=== PATIENT | male | born 1955 | race Caucasian/White ===

== ENCOUNTER 2016-05-14 08:58 | Day surgery (SDC) | payer OTHER ==
[~2016-05-14] VITALS: Ht 175.3 cm; Wt 94.8 kg
[2016-05-27] MEDS ORDERED: ZYLOPRIM-DPS300 MG PO (10:39)
[2016-05-27] MEDS ORDERED: AMLODIPINE-VAL1 EAC2 PO (10:39)
[2016-05-27] MEDS ORDERED: BRILINTA90 MG PO (10:40)
[2016-05-27] MEDS ORDERED: ATORVASTATIN CA80 MG PO (10:40)
[2016-05-27] MEDS ORDERED: METOPROLOL SUCC25 MG PO (10:40)
[2016-05-27] MEDS ORDERED: ASPIRIN EC81 MG PO (10:40)
[2016-05-27] MEDS ORDERED: LEVOTHYROXINE75 MCG PO (10:40)
[2016-05-27] MEDS ORDERED: FOLVITE-DPS1 MG PO (10:41)
[2016-05-27] MEDS ORDERED: PROTONIX40 M2 PO (10:41)
[2016-05-27] MEDS ORDERED: MIRALAX PACKET17 GM PO (10:41)
[2016-05-27] MEDS ORDERED: AMBIEN DPS5 MG PO (10:41)
[2016-05-27] MEDS ORDERED: GRANIX480 MCG/0. SQ (10:42)
[2016-05-27] MEDS ORDERED: [UNRECOGNIZED DRUG - OTHER] PO (10:42)
[2016-05-27] MEDS ORDERED: HYTONE-DPS 2.5%30 GM TP (10:42)
[2016-05-27] MEDS ORDERED: AMOXICILLIN875 MG PO (10:43)
[2016-06-09] MEDS ORDERED: MUCINEX D ER T1 EACH PO (16:30)
[2016-06-09] MEDS ORDERED: HYDROCHLOROTHIA25 MG PO (16:31)
[2016-06-09] MEDS ORDERED: LASIX20 M1 PO (16:31)
[2016-06-09] MEDS ORDERED: ACETAMINOP160 MG/51 PO (16:32)
[2016-06-09] MEDS ORDERED: MELATONIN2.5 MG PO (16:32)
[2016-06-09] MEDS ORDERED: LORATADINE5 MG/5 M3 PO (16:32)
[2016-06-09] MEDS ORDERED: DIPHENHYDR12.5 MG/2 PO (16:33)
--- NOTE | 2016-06-19 12:05 | OR ---
ADMIT: 05/14/2016 RM/LOC: [facility] MR#: [id number] [address] [address] EFFIE GONZALEZ Zev [facility] N [address] [place] [id number] Operative/Delivery Room Report SEX: M AGE: 60 : 1955 SURGERY DATE: 05/14/2016 SURGEON: Papi Uriostegui MD PREOPERATIVE DIAGNOSIS: Metastatic carcinoma with esophageal mass post and subcutaneous nodules one at the sternum, need for IV access for chemotherapy and feeding tube. PROCEDURES: 1. Placement of the left subclavian PowerPort. Catheter length 22 cm, placement in the superior vena cava. 2. Excision of a 1.5 cm nodule subcutaneous right at the lower aspect of the sternum. 3. EGD (esophagogastroduodenoscopy) and PEG (percutaneous endoscopic gastrostomy) tube placement. ANESTHESIA: Local MAC anesthesia for all. ESTIMATED BLOOD LOSS: Less than 25 mL blood loss for all. INDICATION FOR PROCEDURE: Please see my H and P. DESCRIPTION OF PROCEDURE: After the risks, benefits, possible complications, and the alternatives had been explained, and informed consent had been obtained, the patient was taken back to the operating room, underwent sedation. Surgical field was prepped and draped in a sterile manner. The left infraclavicular area was anesthetized with lidocaine. Cook needle was introduced in the left subclavian vein. Guidewire was passed. Intraoperative fluoroscopy showed it to be in good position. Dissected out a pocket large enough for the PowerPort. Catheter was cut at 22 cm, placed in the port and flushed with saline. Dilator and sheath were placed over top of the guidewire. The guidewire and dilator removed. Catheter was threaded down the sheath and the sheath stripped away. There was good aspiration and flushing of the port. Intraoperative fluoroscopy showed it to be in good position. It was sewn in the subcutaneous pocket with a silk suture, 3-0 and 4-0 were used to close subcutaneous tissue and the skin. Once that was done and covered and bandaged, there was a palpable nodule and several of these in the subcutaneous area that show up on CT scan that look worrisome for some metastatic-type disease. Once quite readily accessible on the sternum, I used some 1% lidocaine to anesthetize the skin, made an incision over top of this. Dissected down and circumferentially removed a 1.5 cm nodule. Maintained hemostasis. I then closed with 3-0 Vicryl and 4-0 Monocryl. Once that was done, and that was bandaged as well, we began the EGD and PEG tube. The flexible EGD scope was introduced and it was tight to get to the esophagus, but without needing to dilate, I was able to get my EGD scope through here by here down into the stomach. I had an area where it indented on ADMIT: 05/14/2016 RM/LOC: [facility] MR#: [id number] [address] [place] [id number] CHOUGONZALEZ [facility] N [address] [place] [address] Operative/Delivery Room Report SEX: M AGE: 60 : 1955 the stomach nicely and I could get transillumination, that area was sterilely prepped, local anesthetic was applied. Then, I made a small incision with the needle and catheter was placed into the stomach. The guidewire wire was placed, it was grasped with a snare, brought out through the mouth. The PEG tube was then threaded over top of the guidewire out through the anterior abdominal wall up into position and it appeared to go nicely without any difficulty. Once that was done, I cut the tube, placed the fastener and the cap on it and then reintroduced the EGD scope, maneuvered down the esophagus again into the stomach, you can see the flange of the PEG tube in good position in picture 3 and 4. The scope was removed and the procedure terminated. Tolerated it well, was taken to the recovery room in stable and satisfactory condition. Papi Uriostegui MD/ nupur JOB #: [id number] CC: Papi Uriostegui, Attending Physician Krissy Meléndez, Family Physician
== END 2016-05-14 15:45 | disposition home or self-care (01) ==
LOC: SSS 08:58 → RAD.S 11:00 → EDSTATUS 11:00 → SSS 15:45
DX: C48.1 Malignant neoplasm of specified parts of peritoneum (principal); E78.00 Pure hypercholesterolemia, unspecified; I10 Essential (primary) hypertension; E03.9 Hypothyroidism, unspecified; I51.89 Other ill-defined heart diseases; K21.9 Gastro-esophageal reflux disease without esophagitis; Z86.010 Personal history of colon polyps; Z79.899 Other long term (current) drug therapy

== ENCOUNTER 2016-05-20 12:23 | Inpatient (IN) | payer OTHER ==
[~2016-05-20] VITALS: Ht 175.3 cm; Wt 101.0 kg
--- NOTE | 2016-05-25 16:23 | CO ---
ADMIT: 05/20/2016 RM/LOC: 517 [facility] MR#: [id number] [address] [address] EFFIEGONZALEZ Zev [address] [place] [address] Consultation SEX: M AGE: 60 : 1955 DATE OF CONSULTATION: 05/20/2016 ATTENDING PHYSICIAN: Rober Meyer CONSULTING PHYSICIAN: Rober Johnson MD REASON FOR CONSULTATION: Esophageal cancer. HISTORY OF PRESENT ILLNESS: Patient is a 60-year-old male, who I recently met in clinic for his newly diagnosed esophageal cancer. This led to a further staging studies which unfortunately showed some evidence of subcutaneous metastases as well as omental and abdominal lymph node metastases. He underwent confirmation of these mets with biopsies as well as a feeding tube placement and port placement last week. Over this past weekend, he was admitted to [place] for a probable pneumonia. He has deteriorated over the last few days with fairly severe abdominal distention, shortness of breath, and hypoxia. He was therefore transferred to our facility for further care. He is very uncomfortable at the time of my visit. He cannot take deep breaths. He has really not been ambulating without assistance. He is constipated. He has had ongoing nausea. His fevers have now at this point, resolved. PAST MEDICAL HISTORY: He does have a history of coronary artery disease with stent placement in 2013 and is on medication for that. He has hypertension. He otherwise has no chronic medical illnesses. ALLERGIES: NO KNOWN DRUG ALLERGIES. MEDICATIONS: Reviewed in the chart. 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 They live up near [place]. He is . He is a lifelong nonsmoker. He drinks alcohol socially. FAMILY HISTORY: His father of heart disease. He had a brother with lymphoma. REVIEW OF SYSTEMS: See HPI. Otherwise, complete review of systems was obtained and was negative. PHYSICAL EXAM: VITAL SIGNS: Temp is 97, pulse 123, respirations 28, and blood pressure 147/103. GENERAL: The patient is in some mild distress. He is alert and oriented. HEENT: Mucous membranes are moist. No oral lesions are seen. Extraocular muscles are intact. Pupils are reactive and symmetrical. NECK: Without adenopathy or JVD. HEART: Tachycardic without murmur or irregularity. LUNGS: Clear to auscultation bilaterally without any crackles or wheezes. ABDOMEN: Very distended but soft and nontender. Positive bowel sounds are ADMIT: 05/20/2016 RM/LOC: 517 [facility] MR#: [id number] [address] [address] [place] [address] Consultation SEX: M AGE: 60 : 1955 present. EXTREMITIES: He does have 1 to 2+ edema. No rashes or adenopathy is seen. LABORATORY DATA: His metabolic panel and blood counts are pending today. I am waiting on the records from [place] to review. IMPRESSION: 1. Metastatic, poorly differentiated carcinoma of the esophagus. 2. Ascites versus ileus. 3. Hypoxia with recent pneumonia. RECOMMENDATIONS: I talked with the patient and his family at great length today. He looks quite rough and has deteriorated significantly since our original consultation just on 05/06/2016. He is in need of some additional CT scans to assess this abdominal distention and his pneumonia. We will decide if he needs a paracentesis after that CT scan. He, at the time of my consultation had decided that he does not want to pursue any more aggressive therapy, but after we discussed things a bit further, he and his family have changed their mind and would like to at least see how the next few days would go with aggressive treatment. Our ultimate goal is to get him started on chemotherapy for this seemingly rapidly progressive disease. He has some hope of responding and having improvement in his quality of life through the chemotherapy. I will follow him closely and hopefully see some improvement here. I appreciate this consultation. Rober Johnson MD/ nupur JOB #: [id number] CC: Rober Meyer, Attending Physician Rober Meyer, Family Physician
[2016-05-27] MEDS ORDERED: ZYLOPRIM-DPS300 MG PO (10:39)
[2016-05-27] MEDS ORDERED: AMLODIPINE-VAL1 EAC2 PO (10:39)
[2016-05-27] MEDS ORDERED: ASPIRIN EC81 MG PO (10:40)
[2016-05-27] MEDS ORDERED: METOPROLOL SUCC25 MG PO (10:40)
[2016-05-27] MEDS ORDERED: LEVOTHYROXINE75 MCG PO (10:40)
[2016-05-27] MEDS ORDERED: ATORVASTATIN CA80 MG PO (10:40)
[2016-05-27] MEDS ORDERED: BRILINTA90 MG PO (10:40)
[2016-05-27] MEDS ORDERED: MIRALAX PACKET17 GM PO (10:41)
[2016-05-27] MEDS ORDERED: PROTONIX40 M2 PO (10:41)
[2016-05-27] MEDS ORDERED: FOLVITE-DPS1 MG PO (10:41)
[2016-05-27] MEDS ORDERED: AMBIEN DPS5 MG PO (10:41)
[2016-05-27] MEDS ORDERED: HYTONE-DPS 2.5%30 GM TP (10:42)
[2016-05-27] MEDS ORDERED: GRANIX480 MCG/0. SQ (10:42)
[2016-05-27] MEDS ORDERED: [UNRECOGNIZED DRUG - OTHER] PO (10:42)
[2016-05-27] MEDS ORDERED: AMOXICILLIN875 MG PO (10:43)
[2016-06-09] MEDS ORDERED: MUCINEX D ER T1 EACH PO (16:30)
[2016-06-09] MEDS ORDERED: LASIX20 M1 PO (16:31)
[2016-06-09] MEDS ORDERED: HYDROCHLOROTHIA25 MG PO (16:31)
[2016-06-09] MEDS ORDERED: MELATONIN2.5 MG PO (16:32)
[2016-06-09] MEDS ORDERED: ACETAMINOP160 MG/51 PO (16:32)
[2016-06-09] MEDS ORDERED: LORATADINE5 MG/5 M3 PO (16:32)
[2016-06-09] MEDS ORDERED: DIPHENHYDR12.5 MG/2 PO (16:33)
--- NOTE | 2016-06-30 08:23 | DS ---
ADMIT: 05/20/2016 RM/LOC: 517 [facility] MR#: [id number] [address] [address] GONZALEZ CHOU [facility] [address] [place] [address] General Discharge Summary SEX: M AGE: 60 : 1955 ADMISSION DATE: 05/20/2016 DISCHARGE DATE: 05/26/2016 HISTORY OF PRESENT ILLNESS: This is a 60-year-old male patient with widely metastatic esophageal cancer status post port and G-tube PEG placement in [place] who had declining status with ascites, fluid retention, pain, and dyspnea. He was admitted and transferred to [place] for findings of pneumonia, malignant ascites, and general poor and grave prognosis. HOSPITAL COURSE: He was admitted with diagnosis of pneumonia, ileus, and metastatic ascites. He was started on morphine PHYSICAL THERAPY NURSE, made DNR/DNI and we consulted Dr. Uriostegui who had performed his procedures in [place]. I started him on Zosyn and DuoNeb. He underwent followup CAT scan of abdomen and pelvis. We asked Interventional Radiology to see him for possible pigtail catheter for ascites management. Family was aware that this is palliative and they had difficulty making a decision as to whether to proceed with this procedure. Dr. Johnson followed along and assisted with his monitoring management and care. He wanted the patient to get a celiac nerve block for his chronic pain. A celiac plexus block was planned for 05/24/2016. The patient had evidently been on aspirin and no interventional procedures were performed until this had cleared his system. After a long and difficult hospital stay, the patient ultimately started feeling better with TPN and on 05/24, he underwent procedures including celiac plexus block. By 05/25, he stated that he felt "great." He said he was ready to go home and we made this arrangement. He did not at that point want a PleurX catheter and we dismissed him home with the option of undergoing outpatient PleurX catheter and nerve blocks. He was dismissed to return to see me in 2 weeks, continue tube feeding. He was to follow up with Dr. Johnson and he was to continue Augmentin 875 mg p.o. b.i.d. FINAL DIAGNOSES: 1. Widely metastatic esophageal cancer with pain. 2. Metastatic ascites. 3. Generally poor overall prognosis. Rober Meyer DO/ nupur JOB #: [id number] CC: Rober Meyer DO, Attending Physician Rober Meyer DO, Family Physician
== END 2016-05-26 17:20 | disposition home or self-care (01) | DRG 374 ==
LOC: 5MS 12:23
PROVIDERS: ADMIT Internal Medicine
PROC: 0W9G3ZX Drainage of Peritoneal Cavity, Percutaneous Approach, Diagnostic (ICD-10-PCS; principal; 2016-05-21)
PROC: 3E0336Z Introduction of Nutritional Substance into Peripheral Vein, Percutaneous Approach (ICD-10-PCS; principal; 2016-05-21)
PROC: 3E03305 Introduction of Other Antineoplastic into Peripheral Vein, Percutaneous Approach (ICD-10-PCS; 2016-05-23)
PROC: 0W9G3ZZ Drainage of Peritoneal Cavity, Percutaneous Approach (ICD-10-PCS; 2016-05-24)
PROC: 3E0T3BZ Introduction of Anesthetic Agent into Peripheral Nerves and Plexi, Percutaneous Approach (ICD-10-PCS; 2016-05-24)
PROC: 30233N1 Transfusion of Nonautologous Red Blood Cells into Peripheral Vein, Percutaneous Approach (ICD-10-PCS; 2016-05-25)
PROC: 0W9G3ZZ Drainage of Peritoneal Cavity, Percutaneous Approach (ICD-10-PCS; 2016-05-26)
DX: C78.6 Secondary malignant neoplasm of retroperitoneum and peritoneum (principal); J18.9 Pneumonia, unspecified organism; J96.01 Acute respiratory failure with hypoxia; R18.0 Malignant ascites; C15.9 Malignant neoplasm of esophagus, unspecified; E46 Unspecified protein-calorie malnutrition; C77.2 Secondary and unspecified malignant neoplasm of intra-abdominal lymph nodes; D63.0 Anemia in neoplastic disease; K56.7 Ileus, unspecified; I10 Essential (primary) hypertension; I25.10 Atherosclerotic heart disease of native coronary artery without angina pectoris; Z95.5 Presence of coronary angioplasty implant and graft; Z66 Do not resuscitate

== ENCOUNTER → 2016-06-02 | Outpatient (CLI) | payer OTHER ==
[~2016-06-02] MED LIST: ACETAMINOP160 MG/51 PO; AMBIEN DPS5 MG PO; AMLODIPINE-VAL1 EAC2 PO; AMOXICILLIN875 MG PO; ASPIRIN EC81 MG PO; ATORVASTATIN CA80 MG PO; BRILINTA90 MG PO; DIPHENHYDR12.5 MG/2 PO; FOLVITE-DPS1 MG PO; GRANIX480 MCG/0. SQ; HYDROCHLOROTHIA25 MG PO; HYTONE-DPS 2.5%30 GM TP; LASIX20 M1 PO; LEVOTHYROXINE75 MCG PO; LORATADINE5 MG/5 M3 PO; MELATONIN2.5 MG PO; METOPROLOL SUCC25 MG PO; MIRALAX PACKET17 GM PO; MUCINEX D ER T1 EACH PO; PROTONIX40 M2 PO; ZYLOPRIM-DPS300 MG PO; [UNRECOGNIZED DRUG - OTHER] PO
== END | disposition home or self-care (01) ==
LOC: RAD.S 10:28
PROC: 0W9G3ZZ Drainage of Peritoneal Cavity, Percutaneous Approach (ICD-10-PCS; principal; 2016-06-02)
DX: R18.8 Other ascites (principal); C15.5 Malignant neoplasm of lower third of esophagus; D50.0 Iron deficiency anemia secondary to blood loss (chronic)

== ENCOUNTER 2016-06-07 10:53 | Inpatient (IN) | payer OTHER ==
[~2016-06-07] VITALS: Ht 175.3 cm; Wt 93.9 kg
--- NOTE | ~2016-06-07 | FD ---
ADMIT: 06/07/2016 RM/LOC: 415 [facility] MR#: [id number] [address] [address] CHOUGONZALEZ S [facility] [address] [place] [address] Final Diagnosis SEX: M AGE: 60 : 1955 ADMISSION DATE: 06/07/2016 DISCHARGE DATE: 06/08/2016 FINAL DIAGNOSES: 1. Malignant ascites and pleural effusions. 2. Leukocytosis. 3. Anemia. 4. Widely metastatic adenocarcinoma of the esophagus. Rober Meyer DO/ nupur JOB #: [id number] CC: Rober Meyer DO, Attending Physician Rober Meyer DO, Family Physician
[~2016-06-07 10:53] MED LIST changes: -ACETAMINOP160 MG/51 PO; -DIPHENHYDR12.5 MG/2 PO; -HYDROCHLOROTHIA25 MG PO; -LASIX20 M1 PO; -LORATADINE5 MG/5 M3 PO; -MELATONIN2.5 MG PO; -MUCINEX D ER T1 EACH PO
--- NOTE | 2016-06-08 10:00 | ER ---
ADMIT: 06/07/2016 RM/LOC: 415 [facility] MR#: [id number] [address] [address] GONZALEZ CHOU [address] [place] [address] Emergency Room Report SEX: M AGE: 60 : 1955 DATE: 06/07/2016 ADDENDUM: This is a 60-year-old white male coming in with metastatic esophageal cancer, just could not go through his abdominocentesis because he just felt too weak. White count 17.8, hemoglobin is 7.8. He is receiving chemo. His liver function tests are up. CT scan of abdomen and pelvis does not show any PE, but he has significant pleural effusions and ascites throughout. I spoke with Dr. Meyer along with family. We are going to admit him. His hemoglobin has dropped, so he may need a little bit of a transfusion. His cancer is significantly bad. CONDITION ON DISCHARGE: Serious. Gonzalez Krueger MD/ nupur JOB #: [id number] CC: Rober Meyer DO, Attending Physician Rober Meyer DO, Family Physician
[2016-06-09] MEDS ORDERED: MUCINEX D ER T1 EACH PO (16:30)
[2016-06-09] MEDS ORDERED: LASIX20 M1 PO (16:31)
[2016-06-09] MEDS ORDERED: HYDROCHLOROTHIA25 MG PO (16:31)
[2016-06-09] MEDS ORDERED: ACETAMINOP160 MG/51 PO (16:32)
[2016-06-09] MEDS ORDERED: LORATADINE5 MG/5 M3 PO (16:32)
[2016-06-09] MEDS ORDERED: MELATONIN2.5 MG PO (16:32)
[2016-06-09] MEDS ORDERED: DIPHENHYDR12.5 MG/2 PO (16:33)
--- NOTE | 2016-06-14 08:28 | HP ---
ADMIT: 06/07/2016 RM/LOC: 415 [facility] MR#: [id number] [address] [address] GONZALEZ CHOU [address] [place] [address] History and Physical SEX: M AGE: 60 : 1955 DATE OF SERVICE: 06/07/2016 REASON FOR HOSPITALIZATION: Malignant ascites with anemia and elevated white blood cell count. HISTORY OF PRESENT ILLNESS: This is a 60-year-old male patient, who has widely metastatic carcinoma of the esophagus. He had been receiving outpatient paracentesis but as recently as last week, he felt that the paracentesis was not really adequate. It did not drain much fluid and he still felt "crummy." He made his way back to [place] today, and in the emergency room, he was noted to have ascites with an elevated white blood cell count and anemia. We are admitting him for further management. PAST MEDICAL HISTORY: He has a history of hypertension, hypothyroidism, coronary artery disease, coronary artery stenting. SOCIAL HISTORY: He lives at home with his and family. MEDICATIONS: 1. Brilinta, which has been on hold. 2. Metoprolol. 3. Atorvastatin. 4. Levothyroxine. 5. Valsartan. 6. Hydrochlorothiazide. 7. Protonix. 8. Folic acid. 9. Furosemide. 10.Tylenol. 11.Claritin. 12.Melatonin. 13.Benadryl. 14.Mucinex. 15.Aspirin. For specifics of dosing, please refer to his orders. We are placing his aspirin and Brilinta on hold in lieu of having him undergo a PleurX catheter placement. REVIEW OF SYSTEMS: Denies any fever. He has had some cough with clear sputum production. No current nausea or vomiting, and he did have a bowel movement this morning. No obvious bleeding. PHYSICAL EXAMINATION: GENERAL: He is pleasant, alert. VITAL SIGNS: His blood pressure is 103/71, temperature 96.9. HEENT: His ear, nose, and throat are normal. HEART: Regular. ADMIT: 06/07/2016 RM/LOC: 415 [facility] MR#: [id number] [address] [address] CHOU[place]ZALEZ [address] [place] [address] History and Physical SEX: M AGE: 60 : 1955 LUNGS: Clear, but distant. ABDOMEN: Round, soft with fluid splash and ascites. EXTREMITIES: With some edema. LABORATORY DATA: White count 17.8, hemoglobin 7.8, platelets 194,000. IMPRESSION: Malignant ascites and pleural effusions with elevated white blood cell count and anemia. PLAN: Admit. Transfuse packed red blood cells. Continue his DNR/DNI status as requested by patient. Ask Dr. Johnson to see him. Provide him palliative cares and arrange for PleurX catheter with IR. Rober Meyer, / modl JOB #: [id number] CC: Rober Meyer, Attending Physician Rober Meyer, Family Physician
--- NOTE | 2016-07-02 12:16 | CO ---
ADMIT: 06/07/2016 RM/LOC: 415 [facility] MR#: [id number] [address] [address] GONZALEZ CHOU [address] [place] [address] Consultation SEX: M AGE: 60 : 1955 DATE OF CONSULTATION: 06/08/2016 ATTENDING PHYSICIAN: Rober Meyer DO CONSULTING PHYSICIAN: Rober Johnson MD REASON FOR CONSULTATION: Metastatic esophageal cancer. HISTORY OF PRESENT ILLNESS: The patient is a 60-year-old male whom I have followed closely over the last month or so from his newly diagnosed metastatic esophageal cancer. He has had a really rough initial course here since his diagnosis. He now presents to the hospital with increasing abdominal pain and shortness of breath. He did undergo an outpatient PleurX catheter placement in his abdomen today for his recurrent ascites and was just not doing well in the postprocedure setting and therefore was admitted for symptom management. He did undergo a CT scan in the ER that basically showed his cancer to be stable, but he has new development of bilateral pleural effusions as well as his ascites. He denies any recent fevers. He has had some pain that has been difficult to manage at times. He has ongoing fatigue. His leg swelling has improved somewhat. He had been doing fairly well with his oral intake. He is hoping to get out of the hospital fairly soon. PAST MEDICAL HISTORY: 1. Metastatic esophageal cancer. 2. Hypertension. 3. Hypothyroidism. 4. Coronary artery disease. ALLERGIES: REVIEWED IN THE CHART. MEDICATIONS: Reviewed in the chart. SOCIAL HISTORY: The patient lives in [place]. He owns a restaurant and a bar. He has a very supportive family. He is a nonsmoker. FAMILY HISTORY: He is not aware of any recurrent hereditary malignancies in the family. REVIEW OF SYSTEMS: See HPI. Otherwise, a complete review of systems was obtained and is negative. PHYSICAL EXAMINATION: VITAL SIGNS: Temp is 98, pulse 102, respirations 18, blood pressure 105/69. GENERAL: He is in no acute distress and provides me a good history. He is alert and oriented. HEENT: Mucous membranes are moist. No oral lesions are seen. Extraocular muscles are intact. Pupils are reactive and symmetrical. NECK: Without adenopathy or JVD. HEART: Regular rate and rhythm without murmur. ADMIT: 06/07/2016 RM/LOC: 415 [facility] MR#: [id number] 2620 [facility] [address] [place], [place] [address] GONZALEZ CHOU [address] [place] [address] Consultation SEX: M AGE: 60 : 1955 LUNGS: Clear to auscultation without any crackles or wheezes. ABDOMEN: Soft, nontender, and nondistended with positive bowel sounds throughout. No organomegaly is appreciated. EXTREMITIES: No edema, rashes, lesions, or skin induration is seen. He has no adenopathy. LABORATORY DATA: CBC and CMP are reviewed. CT scans were reviewed. IMPRESSION: 1. Metastatic esophageal cancer. 2. Refractory ascites. 3. New onset of pleural effusions. 4. Anemia secondary to chemotherapy and systemic inflammation. RECOMMENDATIONS: I provided emotional support to the family today. We talked about his cancer management. He will be due for chemotherapy this week once he recovers from his acute illness. I would proceed with a thoracentesis while he is here in the hospital. I will send this for cytology as well. Otherwise, we will just plan to give him supportive care and hopefully he will have a short hospital stay. I will follow along and appreciate being involved. Rober Johnson MD/ nupur JOB #: [id number] CC: Rober Meyer DO, Attending Physician Rober Meyer DO, Family Physician
== END 2016-06-08 17:51 | disposition home or self-care (01) | DRG 375 ==
LOC: RAD.S 10:53 → ER 10:53 → RAD.S 11:00 → EDSTATUS 11:00 → 4PCU 16:10
PROVIDERS: ADMIT Internal Medicine
PROC: 30233N1 Transfusion of Nonautologous Red Blood Cells into Peripheral Vein, Percutaneous Approach (ICD-10-PCS; 2016-06-07)
PROC: 0W9G30Z Drainage of Peritoneal Cavity with Drainage Device, Percutaneous Approach (ICD-10-PCS; principal; 2016-06-08)
PROC: 0W993ZX Drainage of Right Pleural Cavity, Percutaneous Approach, Diagnostic (ICD-10-PCS; principal; 2016-06-08)
DX: C78.6 Secondary malignant neoplasm of retroperitoneum and peritoneum (principal); R18.0 Malignant ascites; J91.0 Malignant pleural effusion; D72.829 Elevated white blood cell count, unspecified; D64.81 Anemia due to antineoplastic chemotherapy; I10 Essential (primary) hypertension; E03.9 Hypothyroidism, unspecified; I25.10 Atherosclerotic heart disease of native coronary artery without angina pectoris; Z95.5 Presence of coronary angioplasty implant and graft; Z85.01 Personal history of malignant neoplasm of esophagus; Z79.82 Long term (current) use of aspirin; Z66 Do not resuscitate

== ENCOUNTER 2016-06-10 21:37 | Inpatient (IN) | payer OTHER ==
[~2016-06-10] VITALS: Ht 175.3 cm; Wt 90.3 kg
--- NOTE | 2016-06-11 04:47 | ER ---
ADMIT: 06/10/2016 RM/LOC: 314 [facility] MR#: [id number] [address] [address] GONZALEZ CHOU [address] [place] [address] Emergency Room Report SEX: M AGE: 60 : 1955 DATE: 06/10/2016 CHIEF COMPLAINT: Weakness. HISTORY OF PRESENT ILLNESS: The patient is a 60-year-old male with newly diagnosed metastatic esophageal cancer. This is his third admission since the of the month and since being diagnosed end of last month initiating chemotherapy tomorrow. The patient underwent thoracentesis today and since then has increasingly short of breath, weak, fatigue, coughing. Denies any fevers, but is chilling. Denies any nausea, vomiting, diarrhea, or urinary symptoms, though readily admits he is not taking oral fluids. PAST MEDICAL HISTORY: ILLNESSES: Coronary artery disease, status post non- STEMI in 2013, underwent PTCA, LAD with stent and PTCA first diagonal in 2013. Hypertension, O2 dependent COPD, recent pneumonia, hyperlipidemia, esophageal cancer, hypothyroidism, anticoagulated, hyperuricemia, GERD. OPERATIONS: PTCA stent in 2013. VAD and G-tube recently. ALLERGIES: NONE. MEDICATIONS: Please see nurse's MAR. SOCIAL HISTORY: , self-employed, resident of [place]. Nonsmoker, nondrinker, no illicit drugs. FAMILY HISTORY: Positive for lymphoma in brother, coronary artery disease in father. REVIEW OF SYSTEMS: A 12-point review of systems, negative for all other systems, illnesses, or operations except as outlined above. PHYSICAL EXAMINATION: VITAL SIGNS: Temp 97.3, pulse 102, respirations 16, BP 82/60, SaO2 of 93%. GENERAL: Severe distress, pale, ashen, non-diaphoretic without jaundice or icterus. HEENT: Normocephalic. No evidence of epistaxis, rhinorrhea, or otorrhea. NECK: Supple without lymphadenopathy or thyromegaly. CHEST: Breath sounds equal, diminished, without rales, rhonchi, or wheeze. HEART: Tachycardic, regular without murmur, gallop, or edema. ABDOMEN: Soft, nontender. Minimally distended, consistent with ascites. Bowel sounds hypoactive. BACK: No CVA tenderness. EXTREMITIES: No evidence of Homans sign, synovitis, or dermatitis. NEURO: EOMI. PERRLA. No evidence of drift, dysarthria, or ataxia. Gait not assessed. MENTAL STATUS: Alert, oriented, and cooperative without delusions, hallucinations, or abnormal thought content. MEDICAL DECISION MAKING: The patient screens positive for sepsis, was given fluid bolus 30 mL/kg, pending pressor support if no response. WBC 28.8 with ADMIT: 06/10/2016 RM/LOC: 314 [facility] MR#: [id number] [address] [address] [place] [address] Emergency Room Report SEX: M AGE: 60 : 1955 marked left shift. Hemoglobin 11.3, platelets 352, lactic 3.1, CRP 19.5. Creatinine 1.9, up from 0.5 three days ago. Glucose 122. Procalcitonin 0.91. Troponin 0.082. INR 1.36. AST, ALT rising since the of the month. Chest x-ray shows no pneumothorax, infiltrate, or significant effusion, markedly improved from recent CT findings. EKG shows sinus rhythm without ST-T or Q- wave change and no change from September 30, 2013. The patient was covered with vancomycin, Zosyn, for severe sepsis. Patient is chronically anticoagulated. The patient has metastatic esophageal carcinoma, pending chemotherapy. Discussed findings and disposition with Dr. Harper, who agreed and gave orders to nursing staff. Due to the patient's presentation, findings, and intervention, 60 minutes of critical care is warranted. DIAGNOSES: 1. Severe sepsis. 2. Hypoxemia. 3. Metastatic esophageal cancer. RECOMMENDATION: Admit inpatient ICU for Dr. Meyer. ADMISSION/DISCHARGE CONDITION: Poor. The patient is a DNR/DNI. Rashad Victoria MD/ nupur JOB #: [id number] CC: Rober Meyer DO, Attending Physician Rober Meyer DO, Family Physician MD Rober Davalos DO
--- NOTE | 2016-06-14 08:28 | HP ---
ADMIT: 06/10/2016 RM/LOC: 314 [facility] MR#: [id number] [address] [address] GONZALEZ CHOU [facility] N [address] [place] [address] History and Physical SEX: M AGE: 60 : 1955 DATE OF SERVICE: 06/11/2016 REASON FOR HOSPITALIZATION: Sepsis, hypotension. HISTORY OF PRESENT ILLNESS: This is a 60-year-old male patient, who has been recently diagnosed with widely metastatic esophageal cancer and has required several hospitalizations over the past month. For specifics of his management and history, please refer to those admission history and physicals. In short, the patient presents at this point with hypotension and his scenario was consistent with hypovolemia and sepsis. At the time of his last dismissal, he was noted to have an elevated white blood cell count, but after discussion with Dr. Johnson, he thought that this was related to colony-stimulating factor therapy, which he was using in the intervals between chemotherapy. At that time, we did not feel that he had any active infection. He now returns after undergoing a thoracentesis and developing general lethargy, shortness of breath, and weakness. The patient reports that he has not been drinking fluids, he has been getting by with minimal nutritional intake. He therefore is likely to be hypovolemic at presentation with presumed underlying sepsis contributing. PAST MEDICAL HISTORY: He does have a history of ascites with PleurX catheter, thoracentesis, coronary artery disease, stent, hypertension, COPD, hypothyroidism, hyperuricemia. SOCIAL HISTORY: He is a nonsmoker. He is . FAMILY HISTORY: Noncontributory. MEDICATIONS: Include: 1. Thyroid supplement. 2. Valsartan. 3. Metoprolol. 4. Hydrochlorothiazide. 5. Protonix. 6. Folate. 7. Ambien. 8. Furosemide. 9. Claritin. 10.Melatonin. 11.Benadryl. 12.Tylenol. 13.Mucinex. For specifics of dosing, please refer to his admission orders. REVIEW OF SYSTEMS: Essentially as outlined above. He denies any significant abdominal pain, but his notes that his abdominal girth has been increasing and he has not undergone paracentesis since his PleurX catheter was placed. His states that they do not have the bottles at home to perform this. ADMIT: 06/10/2016 RM/LOC: 314 [facility] MR#: [id number] [address] [address] GONZALEZ CHOU [facility] N [address] [place] [address] History and Physical SEX: M AGE: 60 : 1955 PHYSICAL EXAMINATION: VITAL SIGNS: His blood pressures have been between 79 and 102 in the morning hours this morning. He does have pressors in place for support. GENERAL: He is awake, on morphine pump for discomfort. He answers questions appropriately. ABDOMEN: Round with ascites. HEART: Regular. LUNGS: He has breath sounds diminished, but clear in the bases. LABORATORY DATA AND IMAGING: His BUN is 46, creatinine is 1.6, albumin is 1.2. White blood cell count is 28.4. His chest x-ray shows some bibasilar opacities. IMPRESSION: 1. Hypovolemic shock. 2. Sepsis. 3. Malnutrition. 4. Pneumonia. 5. Widely metastatic esophageal cancer. PLAN: I discussed his poor prognosis with the patient and his . He at this point wants to continue pushing forward, but his is very understanding and has reasonable expectations with regard to his overall prognosis as she is in private discussing with me the potentials for hospice and comfort cares. Until these decisions are thought through, we will continue to support with antibiotic therapy, pressors, IV fluids, nebulized treatments, etc. He is DNR/DNI status. Rober Meyer, DO/ modl JOB #: [id number] CC: Rober Meyer, Attending Physician Rober Meyre, Family Physician
--- NOTE | 2016-06-14 14:37 | CO ---
ADMIT: 06/10/2016 RM/LOC: 314 [facility] MR#: [id number] [address] [address] GONZALEZ CHOU [address] [place] [address] Consultation SEX: M AGE: 60 : 1955 DATE OF CONSULTATION: 06/11/2016 ATTENDING PHYSICIAN: Rober Meyer CONSULTING PHYSICIAN: Pepper Larios APRN TIME IN: 1345 hours. TIME OUT: 1430 hours. REASON FOR CONSULTATION: Supportive Care consultation was requested by Dr. Meyer for discussion of goals for care. HISTORY OF PRESENT ILLNESS: Mr. Chou is a 60-year-old male with history of metastatic esophageal cancer. He has unfortunately had multiple hospital stays over the course of the past month. He has had issues with ascites as well as pleural effusions. He was admitted on June 10 with sepsis. He was found to have pneumonia. He remains in the ICU on Levophed and is receiving treatment for his sepsis. Due to his multiple complexities, Supportive Care consultation was requested to discuss goals for care. In terms of advanced directives, the patient is a do not resuscitate/do not intubate status. The patient's , Diamond Chou, whose phone #[phone], is the patient's next of kin medical decision maker. He does indicate that he has a durable [id number] for health care and living will, however, we do not have a copy of this currently. The patient is a do not resuscitate/do not intubate status. Symptomatically, the patient appears comfortable. He does have intermittent abdominal pain, but states that this is well controlled with his Dilaudid [employer]. He is weak and fatigued. He denies other complaints currently. PAST MEDICAL HISTORY: 1. Ascites. 2. Metastatic esophageal cancer. 3. Thoracentesis. 4. Coronary artery disease. 5. Hypertension. 6. COPD. 7. Hypothyroidism. 8. Hyperuricemia. SOCIAL HISTORY: The patient is . He has multiple children. He does not use alcohol or tobacco. FAMILY HISTORY: Reviewed, noncontributory. FUNCTIONAL REVIEW: Prior to his hospital stay, he was at home. It sounds like he was weaker since his last hospital stays. However, he was needing ADMIT: 06/10/2016 RM/LOC: 314 [facility] MR#: [id number] [address] [address] CHOU GONZALEZ [facility] N [address] [place] [address] Consultation SEX: M AGE: 60 : 1955 some assistance with ADLs. His palliative performance score prior to admission was around 60%. Currently, he is in bed. He is pretty much requiring total care. His intake is reduced. His current palliative performance scale is 30% to 40%. REVIEW OF SYSTEMS: A 10-point review of systems was completed and other than those pertinent positives and negatives mentioned in the HPI, it is negative. PHYSICAL EXAMINATION: GENERAL: The patient is examined in the bed. He is in no acute distress. VITAL SIGNS: Temperature 98.1, pulse 79, respirations 16, blood pressure 111/60, oxygen saturation 94% on O2 via nasal cannula. HEENT: Head is normocephalic. Pupils are equal, round, and reactive with a diameter of 3 mm bilaterally. Oral mucosa pink and moist with fair dentition. NECK: Supple. RESPIRATORY: Respirations are equal and nonlabored at rest. Lungs are diminished in the bases bilaterally. CARDIOVASCULAR: Rate and rhythm regular without murmurs, rubs, or gallops. Bilateral lower extremity edema 1+ noted. GASTROINTESTINAL: Distended. Tender. Bowel sounds are positive. MUSCULOSKELETAL: Generalized weakness. No obvious joint deformities. INTEGUMENTARY: Skin turgor is fair. NEUROLOGIC: Alert and oriented x3. He will follow commands. PSYCHIATRIC: Calm and cooperative. No agitation or delirium noted. He does demonstrate adequate insight and judgment at this time. DIAGNOSTIC DATA: Sodium 143, potassium 4.6, BUN 46, creatinine 1.16, total protein 5.0, albumin 1.2. WBC 28.4, hemoglobin 9.6, hematocrit 31.1, and platelets are 426. IMPRESSION: 1. Fatigue. 2. Malaise. 3. Severe protein-calorie malnutrition. 4. Abdominal pain, which is controlled with current IV Dilaudid. 5. Ascites. 6. Sepsis. 7. Pneumonia. 8. Metastatic esophageal cancer. 9. Palliative care. 10.The patient is a DNR/DNI. PLAN OF TREATMENT: 1. I was able to meet with the patient and his as well as children at the bedside. We reviewed his overall status and goals for the time ahead. He states that he has had a very difficult time over the course of the past month. He states that his quality of life has been poor and that it is not at the level where he needs it to be. At this point, he ADMIT: 06/10/2016 RM/LOC: 314 [facility] MR#: [id number] [address] [address] [place] [address] Consultation SEX: M AGE: 60 : 1955 states that he is "tired" and wants to focus on comfort only. At this point, he is awaiting on family to arrive in the next day or so and at that time, we will directly go towards full comfort care. I did discuss with him the fact that we are treating his sepsis aggressively with antibiotics and pressor support. He is aware that he could get through the sepsis, but he states that he will likely decline again soon due to his overall debility. We did discuss logistics of comfort care and what that would involve including stopping labs, x-ray, therapy, and also non comfort related medications including his Levophed. He is aware that he could decline fairly quickly without Levophed support and he is prepared for this. He states that he is ready to go to [facility]. 2. The patient does confirm his do not resuscitate/do not intubate status and this is correct on the chart. 3. Much support was given to the patient and family during this difficult time. Their personal transplant registered nurse has been seeing the patient and offering spiritual support. 4. I did call both Dr. Ordoñez and Dr. Meyer's office with updates. The patient's primary oncologist, Dr. Johnson, is out of town; however, I did notify him of the patient's wishes as well. Dr. Meyer did indicate that he is okay with the patient transitioning to comfort care when the patient feels that he is ready for this and I wrote an order for this in the chart. We would like to thank Dr. Meyer for the invitation to participate in this patient's care. Total consultation time was 45 minutes from 1345 hours to 1430 hours with 27 minutes from 1345 hours to 1412 hours spent [id number] with the patient and family discussing goals for care and providing counseling and support. We will continue to follow along. Pepper Larios APRN/ nupur JOB #: [id number] CC: Rober Meyer, Attending Physician Rober Meyer, Family Physician
--- NOTE | 2016-07-21 08:20 | DS ---
ADMIT: 06/10/2016 RM/LOC: 314 [facility] MR#: [id number] [address] [address] GONZALEZ CHOU [facility] [address] [place] [address] General Discharge Summary SEX: M AGE: 60 : 1955 ADMISSION DATE: 06/10/2016 DISCHARGE DATE: 06/14/2016 REASON FOR HOSPITALIZATION: Sepsis, hypotension. HISTORY OF PRESENT ILLNESS: A 60-year-old male patient, who had been recently diagnosed with widely metastatic esophageal cancer, requiring several hospitalizations over the months preceding this admission. He presented with hypotension and a scenario consistent with hypovolemia and sepsis. He had previously had an elevated white count but we thought that this was secondary to colony-stimulating factor as prescribed by Dr. Johnson. HOSPITAL COURSE: He was admitted and started on sepsis protocol, IV Zosyn, IV vancomycin, IV fluids, and support. He confirmed his wishes for DNR and DNI status. We gave him Dilaudid for comfort cares. Dr. Ordoñez saw the patient and made arrangements to hold his chemotherapy until his overall condition had improved. We also supported his nutrition with underlying diagnosis of malnutrition and provided him pneumonia management noting his recent hospitalization for pneumonia. He did have both ascites with PleurX catheter and pleural effusion. On 06/11, we asked Palliative Care to consult and assist with long-term management. The patient and family decided that they would like to go to comfort cares. On 06/12, the patient was transitioned to comfort cares. By 06/14, the patient's blood pressure was dropping. He had rattling, labored respirations. Family expressed they were comfort with his current care and levels of comfort management. On 06/14/2016, the patient . FINAL DIAGNOSES: 1. Metastatic esophageal cancer. 2. Sepsis. 3. Pneumonia. 4. Malnutrition. 5. Pleural effusion. 6. Ascites. Rober Meyer DO/ nupur JOB #: [id number] CC: Rober Meyer DO, Attending Physician Rober Meyer DO, Family Physician
== END 2016-06-14 10:36 | disposition expired | DRG 871 ==
LOC: ER 21:37 → 3ICU 22:55
PROVIDERS: ADMIT Internal Medicine
DX: A41.9 Sepsis, unspecified organism (principal); J96.01 Acute respiratory failure with hypoxia; R57.1 Hypovolemic shock; Z51.5 Encounter for palliative care; J18.9 Pneumonia, unspecified organism; E43 Unspecified severe protein-calorie malnutrition; C15.9 Malignant neoplasm of esophagus, unspecified; R18.8 Other ascites; J44.0 Chronic obstructive pulmonary disease with (acute) lower respiratory infection; N17.9 Acute kidney failure, unspecified; J91.8 Pleural effusion in other conditions classified elsewhere; C79.9 Secondary malignant neoplasm of unspecified site; R65.20 Severe sepsis without septic shock; K21.9 Gastro-esophageal reflux disease without esophagitis; I25.10 Atherosclerotic heart disease of native coronary artery without angina pectoris; I25.2 Old myocardial infarction; I10 Essential (primary) hypertension; E78.5 Hyperlipidemia, unspecified; E03.9 Hypothyroidism, unspecified; Z79.01 Long term (current) use of anticoagulants; Z93.1 Gastrostomy status; Z95.5 Presence of coronary angioplasty implant and graft; Z82.49 Family history of ischemic heart disease and other diseases of the circulatory system; Z99.81 Dependence on supplemental oxygen; Z66 Do not resuscitate

== ENCOUNTER → 2016-06-10 | Outpatient (CLI) | payer OTHER ==
[~2016-06-10] MED LIST changes: +ACETAMINOP160 MG/51 PO; +DIPHENHYDR12.5 MG/2 PO; +HYDROCHLOROTHIA25 MG PO; +LASIX20 M1 PO; +LORATADINE5 MG/5 M3 PO; +MELATONIN2.5 MG PO; +MUCINEX D ER T1 EACH PO
== END | disposition home or self-care (01) ==
LOC: RAD.S 10:52
PROC: 0W9B3ZZ Drainage of Left Pleural Cavity, Percutaneous Approach (ICD-10-PCS; principal; 2016-06-10)
DX: J90 Pleural effusion, not elsewhere classified (principal); C15.5 Malignant neoplasm of lower third of esophagus; D50.0 Iron deficiency anemia secondary to blood loss (chronic)